=== PATIENT | male | born 1965 | race Caucasian/White ===

== ENCOUNTER 2016-12-20 22:33 | Emergency (ER) | payer MEDICARE, OTHER ==
[~2016-12-20 22:33] MED LIST: ADVAIR 250-501 EAC1; ALBUTEROL17 GM INH; ALBUTEROL2.5 MG/0.5 IH; AMARYL PO; AMARYL2 MG PO; AMITRYPTYLINE PO; AZELASTINE137 MCG/01; BENTYL10 MG PO; BENZONATATE PO; CELEXA20 MG PO; CIPRO PO; CLINDAMYCIN HC300 MG PO; DIAZEPAM PO; DITROPAN5 MG PO; DULERA 200 MCG/13 GM INH; DULOXETINE HCL60 MG PO; FLEXERIL PO; FLEXERIL10 MG PO; FLONASE 0.05% N16 G1; FLONASE16 GM; FLOVENT7.9 GM INH; GABAPENTIN800 MG PO; IBUPROFEN PO; IBUPROFEN800 MG PO; INVOKANA300 MG PO; KEFLEX; LEVOTHROID25 MCG PO; LISINOPRIL10 MG PO; LISINOPRIL5 MG PO; LOPID600 MG PO; LORTAB 10-5001 EACH PO; LORTAB 7.5-5001 TAB PO; LOVAZA1 G PO; LYRICA PO; METFORMIN HCL500 M1 PO; METFORMIN PO; MOBIC15 MG PO; MUCINEX; NEURONTIN800 MG PO; OXYCODONE HCL10 MG PO; OXYCONTIN10 MG PO; PAXIL40 MG PO; PHENERGAN W/CO120 ML PO; PHENERGAN25 MG PO; PREDNISONE PO; REGLAN10 MG PO; RESTORIL15 MG PO; SYNTHROID25 MCG PO; ULTRAM PO; VALIUM10 MG PO; VICODIN 5/500 T1 TAB PO; ZITHROMAX PO; ZOFRAN PO
== END 2016-12-20 23:32 | disposition home or self-care (01) ==
LOC: SED 22:33
DX: T18.128A Food in esophagus causing other injury, initial encounter (principal); K22.2 Esophageal obstruction; F17.200 Nicotine dependence, unspecified, uncomplicated; Z88.0 Allergy status to penicillin; Z79.899 Other long term (current) drug therapy
CPT/HCPCS: 99283

== ENCOUNTER 2017-01-01 09:54 | Emergency (ER) | payer MEDICARE, OTHER ==
--- NOTE | ~2017-01-01 | CR2 ---
[facility] A Service of [facility] & [facility] / [facility] RADIOLOGY TEXT RESULTS PATIENT: SENTHIL JOSUE LOCATION: [facility] : 61 UNIT #: [id number] AGE: [address]: Hi Ugarte MD SEX: M ORDER DR: [id number] [facility] [address] [place], [place] [address] [id number] E MR#: [id number] Acc #: [id number] NAME: SENTHIL JOSUE : 1965 SEX: M STUDY DATE/TIME: 01/01/2017 11:16 UNIT: [facility] ROOM: STUDY DESCRIPTION: CR Abdomen Acute Series Attending Physician: Guy Ugarte M.D. Ordering Physician: Ed Doc Sakina Freitas Primary Care Physician: Ez Laureano M.D. MEDICAL IMAGING REPORT This report is preliminary unless electronic signature is present EXAM Acute abdominal series. INDICATIONS Dehydration, abdominal pain today. COMPARISON Compared with 06/01/13. FINDINGS There is a gastrostomy tube in place. The bowel gas pattern is nonobstructed. Cholecystectomy clips. No free air. Left hip arthroplasty. Spinal cord stimulator. Right-sided chest port. IMPRESSION Nonobstructed bowel gas pattern. Dictated by... Zaire Pimentel M.D. THIS IS AN ELECTRONICALLY VERIFIED REPORT Zaire Pimentel M.D. at 01/02/2017 10:31 AM AMARA/francoise TD: 01/01/2017 13:35 JOB #: [id number] MEDICAL IMAGING REPORT Page 1 of 1 COPY
[2017-01-01 10:46] LABS: BASOPHIL% 0.6 % (0-2.5); EOSINOPHIL# 0.3 X10e3 (0-0.7); EOSINOPHIL% 4.1 % (0.0-7.0); HEMATOCRIT 41.4 % (38.0-50.0); HEMOGLOBIN 14.3 gm/dL (13.0-16.0); LYMPHOCYTE# 1.5 X10e3 (1.0-3.5); LYMPHOCYTE% 18.1 % (17.0-45.0); MEAN CELL VOLUME 96.9 FL (83-96); MEAN CORPUSCULAR HEMOGLOBIN 33.4 PG (28-34); MEAN CORPUSCULAR HGB CONC 34.5 g/dL (30-36); MEAN PLATELET VOLUME 8.3 FL (6.5-11.5); MONOCYTE# 0.9 X10e3 (0-1.0); MONOCYTE% 10.4 % (3.0-12.0); NEUTROPHIL# 5.6 X10e3 (1.5-7.1); NEUTROPHIL% 66.8 % (40-75); PLATELET COUNT 142 X10e3 (140-420); RED BLOOD COUNT 4.28 X10e (3.90-5.60); RED CELL DISTRIBUTION WIDTH 13.6 % (11.0-15.5); WHITE BLOOD COUNT 8.3 X10e3 (4.0-10.5)
[2017-01-01 10:53] LABS: DIFF IND NO
[2017-01-01 11:17] LABS: BILIRUBIN, DIRECT 0.1 mg/dL (0.0-0.2); BILIRUBIN,INDIRECT 0.5 mg/dL (0.0-0.9); BILIRUBIN,TOTAL 0.6 mg/dL (0.2-2.0); BUN/CREATININE RATIO 15.71; CREATININE SERUM 0.7 mg/dL (0.6-1.4); GLOM FILT RATE Estimated 107.8 mL/min (>60); POTASSIUM 3.7 mmol/L (3.5-5.1); PROTEIN TOTAL SERUM 7.2 g/dL (6.0-8.3)
== END 2017-01-01 11:59 | disposition home or self-care (01) ==
LOC: CED 09:54
PROVIDERS: Emergency Medicine
DX: E86.0 Dehydration (principal); R11.0 Nausea; J44.9 Chronic obstructive pulmonary disease, unspecified; Z88.0 Allergy status to penicillin; Z88.8 Allergy status to other drugs, medicaments and biological substances
CPT/HCPCS: 36415; 74022; 80048; 80076; 83690; 85025; 96361; 96374; 96375; 99284; J2405